=== PATIENT | male | born 1975 | race Caucasian/White ===

== ENCOUNTER 2025-05-03 04:29 | Emergency (ER) | payer OTHER, SELFPAY ==
--- OUTSIDE RECORDS SUMMARY | 2025-05-03 04:32 | XMS_ITS | Clinical Summary ---
Author Organization [facility] Address [address] [place] [id number] Care Team Providers Care Optometry Professor Name Role Phone Augusto Clarke MD Primary Care Provider [phone] Allergies No known active allergies Medications fexofenadine (NORA) 180 mg tablet Take 1 tablet by mouth once daily with a meal. 0 4 Active cyclobenzaprine (FLEXERIL) 10 mg tablet Three Times A Day as needed 1 Active ketorolac (TORADOL) 10 mg tablet Three Times A Day as needed 1 Active tiZANidine (ZANAFLEX) 4 mg tabletIndications: Right supraspinatus tendonitis,Strain of right trapezius muscle, subsequent encounter Take 1 Tablet (4 mg) by mouth every 6 hours if needed for Muscle Spasm. 30 Tablet 1 Active amLODIPine (NORVASC) 5 mg tabletIndications: Preoperative general physical examination,Rotato r cuff tear arthropathy, right,Essential hypertension TAKE ONE TABLET BY MOUTH EVERY DAY 30 Tablet 2 Active Active Problems Problem Noted Date Diagnosed Date Esophageal reflux 06/05/2007 Immunizations Immunization Administration Dates Next Due AMB Influenza, IIV3 (Age >=3 years)([facility]) 04/27/2010 HepA-HepB (Twinrix) 08/09/2008,09/25/2007 Influenza A (H1N1), Inactivated 04/21/2009 MMR 07/11/1993 Tdap 07/01/2006 Family History Medical History Relation Name Comments Good Health Father Cancer Maternal Grandfather Bone Good Health Mother Blood Disease Paternal Grandfather Leukem ia Other Paternal Grandmother of Old Age Relation Name Status Comments Father Maternal Grandfather Mother Paternal Grandfather Paternal Grandmother Social History Tobacco Use Types Packs/Day Years Used Date Smoking Tobacco: Never Smokeless Tobacco: Never Tobacco Cessation:Counseling Given: Yes Alcohol Use Standard Drinks/Week Comments Not Currently 0 (1 standard drink = 0.6 oz pur e alcohol) PHQ-2 Answer Date Recorded PHQ-2 TOTAL SCORE 0 06/22/2021 Social Connections Answer Date Recorded Frequency of Communication with Friends and Fami ly Not on file 05/23/2021 Alcohol Use Answer Date Recorded How often do you have a drink containing alcohol ? 1 06/22/2021 How many drinks containing a lcohol do you have on a typical day when you are drinking? 0 06/22/2021 How often do you have five or more drinks on one occasion? 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 Not on file Not on file Obstetrics History Last Filed Vital Signs Vital Sign Reading Time Taken Comments Blood Pressure 138/96 06/22/2021 8:49 AM [employer] ENGINEER Pulse 74 06/22/2021 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 Temperature 36.2 C (97.2 F) 06/22/2021 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 Respiratory Rate 18 04/19/2021 3:54 PM [employer] ENGINEER Oxygen Saturation 98% 06/22/2021 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 Inhaled Oxygen Concentration - - Weight 96.3 kg (212 lb 4.8 oz) 06/22/2021 8:16 A M [employer] ENGINEER Height 174 cm (5' 8.5) 06/22/2021 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 Body Mass Index 31.81 06/22/2021 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 Plan of Treatment Health Maintenance Due Date Last Done Comments HIV for age 15-65 1991 Hepatitis C screening for ag e 18-79 1994 Hepatitis B series for 19+ ( 3 of 3 - Hep B Twinrix 3-dose series) 01/09/2009 08/09/2008, 09/25/2007 Tetanus booster 07/01/2016 07/01/2006 Colonoscopy through age 75 2021 Lipids for age 45-75 2021 09/25/2007 BMI (ht and wt on same day) for age 18+ 06/22/2022 06/22/2021, 04/19/2021, 01/10/2017 Depression screening for age 12+ 06/22/2022 06/22/2021, 03/21/2020, 01/10/2017 COVID-19 vaccine series (3 - 2024- season) 2025 06/14/2021, 11/09/2020 Influenza Vaccine (#1) 2025 04/27/2010 RSV vaccine for adults or (1 - 1-dose 75+ series) 2051 Pneumococcal series for age 6-49 Aged Out No longer eligible b ased on patient's age to complete this topic Procedures Procedure Name Priority Date/Time Associated Diagnosis Comments LIPID PANEL Routine 09/25/2007 8:30 AM CDT Screening Lipid Disorders from Last 3 Months or Most Recently Relevant to Health Maintenance Results * LIPID PANEL (09/25/2007 8:30 AM CDT) CHOLESTEROL,TOTAL 151 110 - 199 mg/dL [facility] TRIGLYCERIDES 50 <150 mg/dL [facility] HDL CHOLESTEROL 49 >40 mg/dL [facility] CHOL/HDL RATIO 3.08 <4.51 [facility] LDL CHOLESTEROL 92 <131 mg/dL [facility] PATIENT STATUS Fasting [facility] Blood specimen (specimen) BLOOD SPECIMEN / Unknown 09/25/2007 8:30 AM CDT 09/25/2007 8:25 AM CDT us Augusto Clarke MD CHEMISTRY Final Resu lt [facility] [address] [place] [address] from Last 3 Months or Most Recently Relevant to Health Maintenance Insurance [employer] [facility] Care Teams Optometry Professor Relationship Specialty Start Date End Date Augusto Clarke MD [address] [place] [address] PCP - General 06/09/06
[2025-05-03 04:33] VITALS: BP 138/97; PULSE 76; RESP 18; O2SAT 95; BMI 28.5
--- NOTE | 2025-05-03 04:50 | ED.ABDPAIN ---
HPI - Abdominal Pain General Time Seen by Provider: 04:50 Date Seen: 05/03/25 Chief Complaint: Abdominal Pain Stated Complaint: severe abdominal pain Time Seen by Provider: 05/03/25 04:48 Source: patient, RN notes reviewed and old records reviewed Mode of arrival: ambulatory Limitations: no limitations History of Present Illness HPI narrative: 50-year-old male who presents today with abdominal pain. Patient with generalized abdominal pain and cramping for 24 hours, also some blood in the stool, diarrhea. No nausea vomiting, no fevers, no known ill contacts. Denies recent travel. Related Data Home Medications ?Medication ?Instructions ?Recorded ?Confirmed No Known Home Medications 05/03/25 05/03/25 Allergies Allergy/AdvReac Type Severity Reaction Status Date / Time No Known Drug Allergies Allergy Verified 05/03/25 04:39 PFSH PFSH Social History Smoking Status: Former smoker How often do you have a drink containing alcohol: 2-3 times a week AUDIT-C Alcohol total score: 3 Non-prescribed substance use: marijuana (any form) Exam Narrative: Exam Narrative: General: Well-developed and well-nourished, no acute distress Head: Atraumatic and normocephalic Eyes: Pupils are equal reactive, extraocular motions intact, conjunctiva clear ENT: External nose and ears are normal, posterior pharynx without erythema or exudate Neck: No midline cervical tenderness, full spontaneous range of motion the neck, trachea midline, no adenopathy Heart: Regular rate and rhythm no murmurs or thrills Lungs: Clear to auscultation bilaterally without wheezes or crackles Abdomen: Soft, diffuse tenderness worse in the left lower quadrant, nondistended with active bowel sounds Musculoskeletal: No tenderness, deformity, or edema Neurologic: Awake, alert, and oriented x3, no gross focal neurologic deficits, cranial nerves intact as tested Psych: Mood and affect are appropriate Skin: No rashes Const: Vital Signs, click to edit/add: Vital Signs - 24 hr 05/03/25 04:33 Pulse Rate [Right Pulse Oximeter] 76 Respiratory Rate 18 Blood Pressure [Ri ght Upper Arm] 138/97 H Pulse Oximetry 95 Oxygen Delivery Me thod Room Air Course Course ED Course: Additional records reviewed: Prior emergency department visit from March 2020 when patient was seen for COVID like symptoms Additional history from: Spouse Care impacted by: None Testing considered but not performed: See ED course Disposition: Considered admission but discharge after significant clinical improvement Patient seen examined, presents with generalized abdominal pain or some left lower quadrant along with diarrhea with some blood in the stool. Denies history of ulcerative colitis or Crohn's disease. On exam vital is stable, diffuse abdominal tenderness. Suspect colitis, diverticulitis or enteritis also possible. Labs and fluids ordered along with CT scan. Reevaluation(s) Time of Reevaluation #1: 05:44 Reevaluation #1: CT abdomen pelvis independently interpreted by me with bowel wall thickening of the ascending colon with some inflammatory stranding particularly around the cecum, no other acute intra-abdominal abnormalities. Time of Reevaluation #2: 05:55 Reevaluation #2: Labs independently interpreted by me with mild leukocytosis white blood cell count 11.9, lactate normal. Radiology interpretation CT scan agrees with my initial interpretation, also 1 cm enhancing lesion of the duodenal bulb, further outpatient evaluation commended. IMPRESSION: 1. Wall thickening and inflammation involving the cecum, ascending colon and the right half of the transverse colon consistent with colitis. No intramural air, free air or collection. A small amount of fluid is noted in the right pericolic gutter. 2. Elsewhere, diverticulosis, especially sigmoid. No evidence of diverticulitis. 3. Apparent 1 centimeter enhancing lesion in the duodenal bulb for which follow-up evaluation is recommended in the nonacute setting. 4. Other incidental and nonacute appearing findings as discussed in the body of the report. Please review the comments. Time of Reevaluation #3: 06:03 Reevaluation #3: Labs independently interpreted by me with normal basic panel, normal magnesium. Updated patient and family the findings and plan. Patient is not yet produced a stool sample or urine sample. Fluids are being given now. Anticipate discharge. Vital Signs Vital signs: Initial Vital Signs Temperature Source Temporal Artery Scan 05/03/25 04:33 Pulse Rate 76 05/03/25 04:33 Pulse Rhythm Regular 05/03/25 04:33 Respiratory Rate 18 05/03/25 04:33 Blood Pressure 138/97 H 05/03/25 04:33 Blood Pressure Mean 110 H 05/03/25 04:33 Blood Pressure Position Supine 05/03/25 04:33 Pulse Oximetry 95 05/03/25 04:33 Oxygen Delivery Method Room Air 05/03/25 04:33 Vital Signs Pulse Rate 76 05/03/25 04:33 Respiratory Rate 18 05/03/25 04:33 Blood Pressure 138/97 H 05/03/25 04:33 Pulse Oximetry 95 05/03/25 04:33 Oxygen Delivery Method Room Air 05/03/25 04:33 Pulse Rate 76 05/03/25 04:33 Respiratory Rate 18 05/03/25 04:33 Blood Pressure 138/97 H 05/03/25 04:33 Pulse Oximetry 95 05/03/25 04:33 Oxygen Delivery Method Room Air 05/03/25 04:33 Medications Administered Medications: Discontinued Medications Generic Name Dose Route Start Last Admin Trade Name Freq PRN Reason Stop Dose Admin Hydromorphone HCl 0.5 mg 05/03/25 05:04 05/03/25 05:17 Hydromorphone 0.5 Mg/0.5 Ml Inj IVP 05/03/25 05:05 0.5 mg ONCE ONE Administration Sodium Chloride 1,000 mls @ 1,000 mls/hr 05/03/25 05:15 05/03/25 05:35 0.9 % Sodium Chloride 1000 Ml IV 05/03/25 06:14 1,000 mls/hr .Q1H PATTY Administration Ondansetron HCl 4 mg 05/03/25 05:04 05/03/25 05:18 Ondansetron 2 Mg/Ml Inj IVP 05/03/25 05:05 4 mg ONCE ONE Administration MDM - Abdominal Pain Lab Data Labs: Lab Results 05/03/25 Range/Units 05:15 WBC 11.94 H (4.50-11.00) K/uL RBC 5.33 (4.30-5.90) m/uL Hgb 15.5 (13.5-17.5) gm/dL Hct 46.3 (37.0-53.0) % MCV 87 (80-100) fL MCH 29 (26-34) pg MCHC 34 (32-36) gm/dL RDW Coeff of Roland 13.0 (11.5-15.5) % Plt Count 259 (140-440) K/uL Neut % (Auto) 75.8 H (42.0-72.0) % Lymph % (Auto) 15.6 L (20-44) % [place] % (Auto) 6.4 (0.0-11.0) % Eos % (Auto) 1.1 (0.0-7.0) % Baso % (Auto) 0.3 (0.0-3.0) % Neut # (Auto) 9.10 H (1.7-7.0) K/uL Lymph # (Auto) 1.90 (0.90-2.90) K/uL [place] # (Auto) 0.80 (0.00-0.90) K/UL Eos # (Auto) 0.10 (0.00-0.50) K/uL Baso # (Auto) 0.00 (0.00-0.30) K/uL Abs Immat Gran (auto) 0.10 (0.00-0.30) K/uL Imm/Tot Granulo (auto) 0.8 % Sodium 135 (135-149) mmol/L Potassium 3.9 (3.6-5.1) mmol/L Chloride 100 (96-114) mmol/L Carbon Dioxide 23 (20-32) mmol/L Anion Gap 12 (7-15) mEq/L BUN 10 (5-24) mg/dL Creatinine 0.9 (0.5-1.5) mg/dL Estimated Creat Clear 96.06 Estimated GFR 105 ml/min Glucose 113 (60-115) mg/dL Lactate 1.1 (0.5-1.9) mmol/L Calcium 9.1 (8.4-10.6) mg/dL Magnesium 2.0 (1.5-2.6) mg/dL Discharge Plan Discharge Clinical Impression: Colitis, Duodenal mass Patient Disposition: Home, Self-Care Instructions: Colitis (ED) Additional Instructions: There is a 1 cm mass in the 1st part of the small intestine which will need follow-up. This can be done with MRI or endoscopy. Take Imodium as needed. Make sure your getting plenty of fluids. Avoid red fluids including Gatorade as this can cause red discoloration in the stool. Start bland diet and advance as tolerated. Activity Level: Activity as Tolerated Discharge Diet: Regular Prescriptions: No Action No Known Home Medications Stand Alone Forms: [employer] Info Instructions, Work/School Release
[2025-05-03 05:00] VITALS: TEMP 36.5
--- NOTE | 2025-05-03 05:04 | CRLHL7_ITS ---
For Patients: As a result of the Century Cures Act, medical imaging exams and procedure reports are released immediately into your electronic medical record. You may view this report before your referring provider. If you have questions, please contact your health care provider. INDICATION: Generalized abdominal pain, worse in the left lower quadrant. Hematochezia. COMPARISON: December 08, 2015 TECHNIQUE: CT examination of the abdomen and pelvis was performed following the uneventful intravenous administration of 93 cc of Isovue 370. Thin section axial images were obtained from the lung bases through the pubic symphysis. Oral contrast was not administered. Please note that all CT scans at this facility use dose modulation, iterative reconstruction, and/or weight-based dosing when appropriate to reduce radiation dose to as low as reasonably achievable. FINDINGS: LUNG BASES: The lung bases as visualized appear normal.The heart size is normal at the lung bases. Small hiatal hernia LIVER/BILIARY SYSTEM:The liver is normal in size and configuration. There is no focal mass and there is no intra- or extra hepatic biliary ductal dilatation.The gall bladder appears normal. Hepatic steatosis ADRENALS: Normal KIDNEYS, URETERS and BLADDER:No intrarenal calculi. Low-density benign-appearing renal lesions. No hydronephrosis or hydroureter. The bladder appears normal SPLEEN:Normal appearance. PANCREAS: Appears normal. RETROPERITONEUM and MESENTERY: There is no mass, adenopathy or aortic aneurysm. GASTROINTESTINAL SYSTEM: There is wall thickening and inflammation the cecum, ascending colon and the right half of the transverse colon. This is consistent with colitis. No intramural air, free air or collection. A small amount of free fluid is noted in the right pericolic gutter. Elsewhere in the colon, there is diverticulosis, especially sigmoid but no evidence of diverticulitis. No mechanical obstruction. No gastric abnormality observed. There is a possible 1 centimeter enhancing lesion in the duodenal bulb for which follow-up is recommended PELVIS: No mass, adenopathy or free fluid.Mildly prominent prostate OSSEOUS STRUCTURES and ABDOMINAL WALL: There is an age-appropriate appearance of the osseous structures.No significant abdominal wall defect. OTHER: No free fluid or free air. IMPRESSION: 1. Wall thickening and inflammation involving the cecum, ascending colon and the right half of the transverse colon consistent with colitis. No intramural air, free air or collection. A small amount of fluid is noted in the right pericolic gutter. 2. Elsewhere, diverticulosis, especially sigmoid. No evidence of diverticulitis. 3. Apparent 1 centimeter enhancing lesion in the duodenal bulb for which follow-up evaluation is recommended in the nonacute setting. 4. Other incidental and nonacute appearing findings as discussed in the body of the report. Please review the comments. Please note that all CT scans at this facility use dose modulation, iterative reconstruction, and/or weight-based dosing when appropriate to reduce radiation dose to as low as reasonably achievable. Dictated by Wilberto Farnsworth MD @ 05/03/2025 5:44:14 AM (Electronically Signed)
[2025-05-03] MEDS: ONDANSETRON 2 MG/ML inj 4 MG IVP (05:18)
[2025-05-03 05:29] LABS: Hematocrit* 46.3 % (37.0-53.0); Hemoglobin* 15.5 gm/dL (13.5-17.5); Immature Granulocytes Abs Auto 0.10 K/uL (0.00-0.30); Immature Granulocytes Pct Auto 0.8 %; Mean Corpuscular HGB Conc 34 gm/dL (32-36); Mean Corpuscular Hemoglobin 29 pg (26-34); Mean Corpuscular Volume 87 fL (80-100); RDW Coefficient of Variation % 13.0 % (11.5-15.5); Red Blood Count* 5.33 m/uL (4.30-5.90); White Blood Count* 11.94 K/uL (4.50-11.00)
[2025-05-03 05:32] LABS: Lactate* 1.1 mmol/L (0.5-1.9)
[2025-05-03 05:50] LABS: Lymphocytes Absolute Auto 1.90 K/uL (0.90-2.90)
[2025-05-03 05:51] LABS: Slide Review Reflex No
[2025-05-03 05:53] LABS: Chloride* 100 mmol/L (96-114); Sodium* 135 mmol/L (135-149)
[2025-05-03 05:54] LABS: Potassium* 3.9 mmol/L (3.6-5.1)
[2025-05-03 05:56] LABS: Anion Gap 12 mEq/L (7-15); Blood Urea Nitrogen* 10 mg/dL (5-24); Carbon Dioxide* 23 mmol/L (20-32); Creatinine* 0.9 mg/dL (0.5-1.5); Est. Creatinine Clearance* 96.06; Estimated Glomerular Filt Rate 105 ml/min
[2025-05-03 05:57] LABS: Calcium* 9.1 mg/dL (8.4-10.6); Glucose* 113 mg/dL (60-115)
[2025-05-03 06:52] LABS: Appearance Urine Clear (Clear)
[2025-05-04 13:23] LABS: Erythrocyte SedimentationRate* 3 mm/hr (2-15)
== END 2025-05-03 06:57 | disposition home or self-care (01) ==
LOC: ED 05:52
PROVIDERS: Emergency Provider Family Medicine
DX: K52.9 Noninfective gastroenteritis and colitis, unspecified (principal); K31.9 Disease of stomach and duodenum, unspecified
CPT/HCPCS: 36415; 74177; 80048; 81001; 83605; 83735; 85025; 85651; 86140; 87045; 87046; 87427; 96374; 96375; 99285; J1171; J2405; J7030; Q9967

== ENCOUNTER 2025-05-04 06:28 | Inpatient (IN) | payer OTHER, SELFPAY ==
[2025-05-04] VITALS (24 sets, daily range): BP systolic 100–139; BP diastolic 66–86; PULSE 51–73; RESP 16–18; TEMP 36.3–36.9; O2SAT 87–100; BMI 29.0; BMI 29.1
--- NOTE | 2025-05-04 06:45 | ED.ABDPAIN ---
HPI - Abdominal Pain General Time Seen by Provider: 06:45 Date Seen: 05/04/25 Chief Complaint: Abdominal Pain Stated Complaint: Abdominal pain Time Seen by Provider: 05/04/25 06:45 Source: patient Mode of arrival: ambulatory History of Present Illness HPI narrative: Wilberto is a 50 yo male has known significant past medical history who presents the emergency department for evaluation of abdominal pain. Patient presents this morning with his who provides majority of the history. reports that symptoms started on Friday night around 2200 with diffuse abdominal cramping, and diarrhea. On Friday patient had worsening cramping pain along with blood in the stool so went to the emergency department for evaluation. Per chart review patient was seen in the emergency department 2 days ago on Friday05/02/2025 for abdominal pain/cramping, and bloody stools. Patient had comprehensive labs as well as CT imaging which I reviewed and patient was diagnosed with colitis and was discharged home with Imodium, oxycodone, Zofran. Right reports that since discharge medications do not seem to be working. Patient had his last episode of loose stool yesterday morning around 10:00 a.m. and patient did bring sample in for testing. notes that yesterday patient had decreased oral intake and only took an approximately 6 oz of fluids. This morning patient woke up around 5:00 a.m. with severe worsening abdominal pain along with nausea, vomiting. Denies any fever however does report chills. No sick contacts, no recent illnesses, no recent travel. No other complaints. Hx of ingunial hernia repair, no other abdominal surgeries. Related Data Home Medications ?Medication ?Instructions ?Recorded ?Confirmed No Known Home Medications 05/03/25 05/04/25 Allergies Allergy/AdvReac Type Severity Reaction Status Date / Time No Known Drug Allergies Allergy Verified 05/04/25 06:40 Review of Systems Narrative Past medical history, past surgical history, medications, allergies, family history, and social history were reviewed with the patient. No additional pertinent items. A medically appropriate review of systems was performed with pertinent positives and negatives noted in HPI, all other systems negative. PFSH PFS Social History Smoking Status: Former smoker How often do you have a drink containing alcohol: 2-3 times a week AUDIT-C Alcohol total score: 3 Non-prescribed substance use: marijuana (any form) Exam Narrative: Exam Narrative: General: Afebrile, in distress secondary to pain HEENT: Normocephalic, atraumatic, conjunctiva normal. MMM Neck: non-tender, supple Cardio: regular rate. regular rhythm Resp: Normal work of breathing, no respiratory distress, lungs clear bilaterally, no wheezing, rhonchi, rales Chest/Back: no visual signs of trauma, no midline tenderness, no CVA tenderness Abdomen: soft, diffuse tenderness to palpation mostly and lower abdomen. Neuro: alert and fully oriented. CN II-XII grossly intact. Grossly normal strength and sensation in all extremities. MSK: no deformities. Normal range of motion Integumentary/Skin: no rash visualized, normal color Psych: normal affect, normal behavior Const: Vital Signs, click to edit/add: Vital Signs - 24 hr 05/04/25 06:38 Temperature 98.4 F Pulse Rate [Pulse Oximeter] 73 Respiratory Rate 18 Blood Pressure [Ri ght Upper Arm] 127/84 Pulse Oximetry 98 Oxygen Delivery Me thod Room Air Course Vital Signs Vital signs: Initial Vital Signs Temperature 98.4 F 05/04/25 06:38 Temperature Source Temporal Artery Scan 05/04/25 06:38 Pulse Rate 73 05/04/25 06:38 Respiratory Rate 18 05/04/25 06:38 Blood Pressure 127/84 05/04/25 06:38 Blood Pressure Mean 98 05/04/25 06:38 Blood Pressure Position Sitting 05/04/25 06:38 Pulse Oximetry 98 05/04/25 06:38 Oxygen Delivery Method Room Air 05/04/25 06:38 Vital Signs Temperature 98.4 F 05/04/25 06:38 Pulse Rate 73 05/04/25 06:38 Respiratory Rate 18 05/04/25 06:38 Blood Pressure 127/84 05/04/25 06:38 Pulse Oximetry 98 05/04/25 06:38 Oxygen Delivery Method Room Air 05/04/25 06:38 Temperature 98.4 F 05/04/25 06:38 Pulse Rate 73 05/04/25 06:38 Respiratory Rate 18 05/04/25 06:38 Blood Pressure 127/84 05/04/25 06:38 Pulse Oximetry 98 05/04/25 06:38 Oxygen Delivery Method Room Air 05/04/25 06:38 Medications Administered Medications: Generic Name Dose Route Start Last Admin Trade Name Freq PRN Reason Stop Dose Admin Sodium Chloride 1,000 mls @ 1,000 mls/hr 05/04/25 07:00 05/04/25 07:09 0.9 % Sodium Chloride 1000 Ml IV 05/04/25 07:59 1,000 mls/hr .Q1H PATTY Administration Discontinued Medications Generic Name Dose Route Start Last Admin Trade Name [place] PRN Reason Stop Dose Admin Hydromorphone HCl 0.5 mg 05/04/25 06:59 05/04/25 07:08 Hydromorphone 0.5 Mg/0.5 Ml Inj IVP 05/04/25 07:00 0.5 mg ONCE ONE Administration Ondansetron HCl 4 mg 05/04/25 06:59 05/04/25 07:08 Ondansetron 2 Mg/Ml Inj IVP 05/04/25 07:00 4 mg ONCE ONE Administration MDM - Abdominal Pain MDM Narrative Medical decision making narrative: Wilberto is a 50 yo male has known significant past medical history who presents the emergency department for evaluation of abdominal pain. Upon arrival patient is ill but nontoxic appearing, afebrile, in distress. Patient hemodynamically stable vital signs within normal limits blood pressure 127/84, heart rate 73, oxygen 98% on room air. I reviewed patient's most recent ED visit on 05/02/2025 including comprehensive labs as well as CT imaging. Differential diagnosis includes but is not limited to gastroenteritis versus gastritis versus colitis versus perforated bowel versus pancreatitis versus diverticulitis versus appendicitis versus cholecystitis among others. Given patient's worsening symptoms will plan for repeat laboratory testing and likely repeat CT scan given significant tenderness on examination. Patient was treated with IV Zofran, IV Dilaudid for pain, and 1 L IV fluid bolus. Comprehensive labs remarkable for white blood cell count of 10.4 (previously 11.9), hemoglobin 15.1, normal lactic acid 1.3. No acute metabolic or electrolyte abnormality, bilirubin elevated at 2.4 however unknown baseline. No other transaminitis. Normal lipase. Patient signed out to morning provider pending CT scan of the abdomen pelvis, re-evaluation, final disposition. Medical Records Attestation: I reviewed the patient's medical records. Lab Data Attestation: I reviewed the patient's lab results. Labs: Lab Results 05/04/25 Range/Units 06:48 WBC 10.40 (4.50-11.00) K/uL RBC 5.16 (4.30-5.90) m/uL Hgb 15.1 (13.5-17.5) gm/dL Hct 45.4 (37.0-53.0) % MCV 88 (80-100) fL MCH 29 (26-34) pg MCHC 33 (32-36) gm/dL RDW Coeff of Roland 12.9 (11.5-15.5) % Plt Count 258 (140-440) K/uL Neut % (Auto) 70.5 (42.0-72.0) % Lymph % (Auto) 21.3 (20-44) % [place] % (Auto) 5.9 (0.0-11.0) % Eos % (Auto) 1.9 (0.0-7.0) % Baso % (Auto) 0.2 (0.0-3.0) % Neut # (Auto) 7.34 H (1.7-7.0) K/uL Lymph # (Auto) 2.21 (0.90-2.90) K/uL [place] # (Auto) 0.60 (0.00-0.90) K/UL Eos # (Auto) 0.20 (0.00-0.50) K/uL Baso # (Auto) 0.02 (0.00-0.30) K/uL Abs Immat Gran (auto) 0.02 (0.00-0.30) K/uL Imm/Tot Granulo (auto) 0.2 % Sodium 137 (135-149) mmol/L Potassium 3.9 (3.6-5.1) mmol/L Chloride 99 (96-114) mmol/L Carbon Dioxide 26 (20-32) mmol/L Anion Gap 12 (7-15) mEq/L BUN 12 (5-24) mg/dL Creatinine 1.1 (0.5-1.5) mg/dL Estimated GFR 82 ml/min Glucose 104 (60-115) mg/dL Lactate 1.3 (0.5-1.9) mmol/L Calcium 9.0 (8.4-10.6) mg/dL Total Bilirubin 2.4 H (0.1-1.5) mg/dL AST 24 (12-35) U/L ALT 24 (4-50) U/L Alkaline Phosphatase 61 (40-150) U/L Total Protein 7.2 (6.0-8.3) g/dL Albumin 4.2 (3.3-5.0) g/dL Lipase 33 (23-300) U/L Discharge Plan Discharge Clinical Impression: Diffuse abdominal pain, Nausea & vomiting Prescriptions: No Action No Known Home Medications Follow Up/Referrals: Provider,Not a Local [Primary Care Provider, Family Practice]
[2025-05-04 07:07] LABS: Lactate* 1.3 mmol/L (0.5-1.9)
[2025-05-04] MEDS: ONDANSETRON 2 MG/ML inj 4 MG IVP ×3 (07:08→19:54)
[2025-05-04 07:21] LABS: Hematocrit* 45.4 % (37.0-53.0); Hemoglobin* 15.1 gm/dL (13.5-17.5); Immature Granulocytes Abs Auto 0.02 K/uL (0.00-0.30); Immature Granulocytes Pct Auto 0.2 %; Lymphocytes Absolute Auto 2.21 K/uL (0.90-2.90); Mean Corpuscular HGB Conc 33 gm/dL (32-36); Mean Corpuscular Hemoglobin 29 pg (26-34); Mean Corpuscular Volume 88 fL (80-100); RDW Coefficient of Variation % 12.9 % (11.5-15.5); Red Blood Count* 5.16 m/uL (4.30-5.90); White Blood Count* 10.40 K/uL (4.50-11.00)
[2025-05-04 07:23] LABS: Slide Review Reflex No
[2025-05-04 07:24] LABS: Albumin* 4.2 g/dL (3.3-5.0); Chloride* 99 mmol/L (96-114)
[2025-05-04 07:25] LABS: Potassium* 3.9 mmol/L (3.6-5.1); Sodium* 137 mmol/L (135-149)
[2025-05-04 07:27] LABS: Alanine Aminotransferase* 24 U/L (4-50); Alkaline Phosphatase* 61 U/L (40-150); Anion Gap 12 mEq/L (7-15); Aspartate Amino Transferase* 24 U/L (12-35); Bilirubin Total* 2.4 mg/dL (0.1-1.5); Blood Urea Nitrogen* 12 mg/dL (5-24); Carbon Dioxide* 26 mmol/L (20-32); Creatinine* 1.1 mg/dL (0.5-1.5); Estimated Glomerular Filt Rate 82 ml/min; Total Protein* 7.2 g/dL (6.0-8.3)
[2025-05-04 07:28] LABS: Calcium* 9.0 mg/dL (8.4-10.6); Glucose* 104 mg/dL (60-115)
--- NOTE | 2025-05-04 07:34 | CRLHL7_ITS ---
For Patients: As a result of the Century Cures Act, medical imaging exams and procedure reports are released immediately into your electronic medical record. You may view this report before your referring provider. If you have questions, please contact your health care provider. INDICATION: Abdominal pain, vomiting, colitis TECHNIQUE: CT abdomen and pelvis acquired with 95 cc Isovue 370 IV contrast. COMPARISON: CT abdomen and pelvis May 03, 2025 FINDINGS: Lower chest: Unremarkable. Liver: Normal in size and attenuation. No suspicious masses. Gallbladder and bile ducts: No stones or inflammation. No biliary dilatation. Pancreas: No mass or inflammation. Spleen: Normal in size. No masses. Adrenal glands: No suspicious mass. Kidneys: Bilateral kidneys are normal in size with symmetric enhancement. No nephrolithiasis or hydronephrosis. Too small to characterize hypodense renal lesions, unchanged. GI tract: Redemonstration of wall thickening and inflammation involving ascending colon and transverse colon, similar to previous exam. No interval change. No bowel obstruction. No localized or drainable fluid collection. Colonic diverticulosis without diverticulitis. Previously noted enhancing lesion in the duodenal bulb is less conspicuous on the current exam. Normal appendix. Vasculature: Abdominal aorta is normal in caliber. Lymph nodes: Redemonstration of few subcentimeter sized lymph node in the right mid quadrant, likely reactive. Peritoneum/Abdominal Wall: No free air or significant free fluid. Hernia. Small fat containing umbilical Pelvis: Unremarkable. Bones: Unremarkable for age. IMPRESSION: Redemonstration of findings suggestive of colitis involving ascending and transverse colon, without significant interval change. Colonic diverticulosis. Previously noted enhancing lesion in the duodenal bulb is less conspicuous on the current exam. Please note that all CT scans at this facility use dose modulation, iterative reconstruction, and/or weight-based dosing when appropriate to reduce radiation dose to as low as reasonably achievable. Dictated by Arnaud Valdes MD @ 05/04/2025 8:54:48 AM (Electronically Signed)
[2025-05-04] MEDS: MORPHINE 4 MG/ML INJ IVP (08:05)
[2025-05-04] MEDS: PIPERACILLIN/TAZOBACTAM 4.5 GM in 0.9 % SODIUM CHLORIDE Mini-bag 100 ML IVPB (09:35)
--- NOTE | 2025-05-04 11:01 | PM.IMHP1 ---
Assessment and Plan Assessment and plan (1) Colitis: Problem comment: - on imaging 05/03 and 05/04 - ddx: infectious, inflammatory - not typically treated with abx, but given severe symptoms/discomfort/hematochezia, will cover with Zosyn - IVFs, clear diet if tolerated (currently not able to take anything po), slowly advance - check C-diff - will need outpatient colonoscopy in 4-6 weeks to evaluate Status: Acute (2) Hematochezia: Problem comment: - 07/04 colitis, follow Hgb Status: Acute (3) Duodenal mass: Problem comment: - incidentally noted 05/03/25, outpatient f/u Status: Acute (4) Nausea & vomiting: Problem comment: - treat, slowly advance diet Status: Acute Plan - per above - acutely ill with recurrent ER visits, likely will require 2MN stay given symptoms, need for serial Hgb, IV management of symptoms - updated bedside, questions answered Hospitalist- H&P: HPI History of Present Illness Date Seen: 05/04/25 Chief complaint: Abdominal pain Narrative: Wilberto Gipson is a 50 year old male who presented to the emergency room this morning for persistent abdominal pain. He has had symptoms for 4 days, started on Friday, 05/01 with abdominal cramping, nausea, and diarrhea. Intermittent associated hematochezia. Seen in the emergency room on 05/03 for symptoms, noted to have colitis on CT scan with incidentally noted 1cm enhancing lesion in duodenal bulb, reassuring labs. Discharged home with oral pain management, but symptoms worsened significantly over the last 24 hours; now has more nausea and vomiting and unable to tolerate oral medication. ER today: - white blood count of 10.4 with normal differential - reassuring BMP, bilirubin 2.4 - repeat CT: Redemonstration of colitis in the ascending and transverse colon, less conspicuous enhancing lesion duodenal bulb No sick contacts, no recent travel, no joint pain, no fevers. No sick animals. No self or family history of IBD. Generally healthy, no regular medications. Has seen Dr. Clarke in the past for primary care. 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 Nonsmoker, rare ETOH. Full Code What is your current living situation?: I presently have a place to live Problems where you live: no known problems In the past 12 months, utilities in danger of being shut off: no In past 12 months, lack of transportation kept you from medical appts, meetings, work, or getting things needed for daily living: no In the past 12 mos, have been you worried that your food would run out before you had money to buy more?: never true In the past 12 mos, the food you bought just didn't last and you didn't have money to buy more?: never true Highest level of school completed/degree received: Bachelor's degree Smoking Status: Never smoker How often do you have a drink containing alcohol: 2-4 times a month Alcohol type: beer How many standard drinks containing alcohol do you have on a typical day: 3 or 4 How often do you have six or more drinks on one occasion: Never AUDIT-C Alcohol total score: 3 Non-prescribed substance use: denies use Caffeine: Yes (soda) How often does anyone, including family, friends and others, physically hurt you: never How often does anyone, including family, friends and others, insult or talk down to you: never How often does anyone, including family, friends and others, threaten you with harm: never How often does anyone, including family, friends and others, scream or curse at you: never service: No Meds Home Medications and Allergies Home Medications ?Medication ?Instructions ?Recorded ?Confirmed ?Type No Known Home Medications 05/03/25 05/04/25 History Home Medication Comments: No daily medications Allergies Allergy/AdvReac Type Severity Reaction Status Date / Time No Known Drug Allergies Allergy Verified 05/04/25 06:40 Exam Narrative: Exam Narrative: GEN: Alert and oriented, sitting in bed. Appears ill with intermittent retching during our visit HEENT: EOMIs bilaterally, no scleral icterus CV: RRR, No concerning murmurs R: LCTA bilaterally Ab: Uncomfortable with palpation, mild distention Ext: wwp, no concerning edema Neuro: Nonfocal Psych: Appropriate Const: Vital Signs, click to edit/add: Vital Signs - 24 hr 05/04/25 06:38 05/04/25 07:24 05/04/25 07:25 Temperature 98.4 F Pulse Rate 57 L 54 L Pulse Rate [Pulse Oximeter] 73 Pulse Rate [Right Pulse Oximeter] Respiratory Rate 18 Blood Pressure 100/69 Blood Pressure [Le ft Arm] Blood Pressure [Ri ght Upper Arm] 127/84 Pulse Oximetry 98 93 94 Oxygen Delivery Me thod Room Air Oxygen Flow Rate 05/04/25 07:30 05/04/25 07:31 05/04/25 07:45 Temperature Pulse Rate 56 L 55 L 56 L Pulse Rate [Pulse Oximeter] Pulse Rate [Right Pulse Oximeter] Respiratory Rate Blood Pressure 110/66 Blood Pressure [Le ft Arm] Blood Pressure [Ri ght Upper Arm] Pulse Oximetry 92 94 98 Oxygen Delivery Me thod Oxygen Flow Rate 05/04/25 08:00 05/04/25 08:01 05/04/25 08:02 Temperature Pulse Rate 56 L 56 L 60 Pulse Rate [Pulse Oximeter] Pulse Rate [Right Pulse Oximeter] Respiratory Rate Blood Pressure 109/69 Blood Pressure [Le ft Arm] Blood Pressure [Ri ght Upper Arm] Pulse Oximetry 96 94 90 Oxygen Delivery Me thod Oxygen Flow Rate 05/04/25 08:15 05/04/25 08:34 05/04/25 08:38 Temperature Pulse Rate 67 60 Pulse Rate [Pulse Oximeter] Pulse Rate [Right Pulse Oximeter] Respiratory Rate Blood Pressure Blood Pressure [Le ft Arm] Blood Pressure [Ri ght Upper Arm] Pulse Oximetry 87 L 99 98 Oxygen Delivery Me thod Room Air Nasal Cannula Nasal Cannula Oxygen Flow Rate 2 2 05/04/25 08:38 05/04/25 08:45 05/04/25 09:00 Temperature Pulse Rate 51 L 51 L 59 L Pulse Rate [Pulse Oximeter] Pulse Rate [Right Pulse Oximeter] Respiratory Rate Blood Pressure 118/79 Blood Pressure [Le ft Arm] Blood Pressure [Ri ght Upper Arm] Pulse Oximetry 100 98 98 Oxygen Delivery Me thod Oxygen Flow Rate 05/04/25 09:01 05/04/25 09:15 05/04/25 09:30 Temperature Pulse Rate 56 L 63 60 Pulse Rate [Pulse Oximeter] Pulse Rate [Right Pulse Oximeter] Respiratory Rate 16 Blood Pressure 120/81 Blood Pressure [Le ft Arm] Blood Pressure [Ri ght Upper Arm] Pulse Oximetry 98 97 97 Oxygen Delivery Me thod Oxygen Flow Rate 05/04/25 09:31 05/04/25 09:45 05/04/25 10:21 Temperature 97.4 F L Pulse Rate 72 56 L Pulse Rate [Pulse Oximeter] Pulse Rate [Right Pulse Oximeter] 55 L Respiratory Rate 16 18 Blood Pressure 122/76 Blood Pressure [Le ft Arm] 124/72 Blood Pressure [Ri ght Upper Arm] Pulse Oximetry 97 97 97 Oxygen Delivery Me thod Room Air Oxygen Flow Rate Hospitalist - H&P: Result Labs Labs: Short CBC 05/04/25 Range/Units 06:48 WBC 10.40 (4.50-11.00) K/uL Hgb 15.1 (13.5-17.5) gm/dL Hct 45.4 (37.0-53.0) % Plt Count 258 (140-440) K/uL BMP 05/04/25 06:48 Sodium 137 Potassium 3.9 Chloride 99 Carbon Dioxide 26 BUN 12 Creatinine 1.1 Glucose 104 Calcium 9.0 Liver Function 05/04/25 Range/Units 06:48 Total Bilirubin 2.4 H (0.1-1.5) mg/dL AST 24 (12-35) U/L ALT 24 (4-50) U/L Alkaline Phosphatase 61 (40-150) U/L Albumin 4.2 (3.3-5.0) g/dL
[2025-05-04] MEDS: PANTOPRAZOLE SODIUM 40 MG INJ IVP (11:39)
[2025-05-04] MEDS: PIPERACILLIN/TAZOBACTAM 3.375 GM in 0.9 % SODIUM CHLORIDE Mini-bag 100 ML IVPB ×2 (15:11→21:46)
[2025-05-04 15:38] LABS: Hemoglobin* 13.8 gm/dL (13.5-17.5)
--- NOTE | 2025-05-04 18:07 | PC.NURSE ---
End of Shift note 261 Patient has been pleasant and cooperative throughout shift. VSS. Afebrile. A&Ox4. Independent. Uses call light appropriately. Call light within reach
[2025-05-04] MEDS: ACETAMINOPHEN 325 MG TABLET 975 MG PO (19:54)
[2025-05-04] MEDS: PROCHLORPERAZINE 5 MG/ML VIAL IV (23:34)
[2025-05-05] MEDS: ACETAMINOPHEN 325 MG TABLET 975 MG PO ×2 (02:00→08:06)
[2025-05-05] MEDS: ONDANSETRON 2 MG/ML inj 4 MG IVP (02:00)
[2025-05-05 03:00] VITALS: BP 113/66; PULSE 56; RESP 16; TEMP 36.7; O2SAT 98
[2025-05-05] MEDS: PIPERACILLIN/TAZOBACTAM 3.375 GM in 0.9 % SODIUM CHLORIDE Mini-bag 100 ML IVPB ×3 (03:49→15:28)
[2025-05-05 06:40] LABS: Hematocrit* 38.8 % (37.0-53.0); Hemoglobin* 12.6 gm/dL (13.5-17.5); Immature Granulocytes Abs Auto 0.01 K/uL (0.00-0.30); Immature Granulocytes Pct Auto 0.1 %; Lymphocytes Absolute Auto 1.86 K/uL (0.90-2.90); Mean Corpuscular HGB Conc 33 gm/dL (32-36); Mean Corpuscular Hemoglobin 29 pg (26-34); Mean Corpuscular Volume 90 fL (80-100); RDW Coefficient of Variation % 13.0 % (11.5-15.5); Red Blood Count* 4.32 m/uL (4.30-5.90); White Blood Count* 7.71 K/uL (4.50-11.00)
[2025-05-05 06:44] LABS: Slide Review Reflex No
[2025-05-05 06:47] LABS: Albumin* 3.4 g/dL (3.3-5.0); Chloride* 102 mmol/L (96-114)
[2025-05-05 06:48] LABS: Potassium* 3.8 mmol/L (3.6-5.1); Sodium* 134 mmol/L (135-149)
[2025-05-05 06:50] LABS: Alanine Aminotransferase* 18 U/L (4-50); Alkaline Phosphatase* 53 U/L (40-150); Anion Gap 10 mEq/L (7-15); Aspartate Amino Transferase* 18 U/L (12-35); Bilirubin Direct* 0.4 mg/dL (0.0-0.5); Bilirubin Total* 2.7 mg/dL (0.1-1.5); Blood Urea Nitrogen* 15 mg/dL (5-24); Carbon Dioxide* 22 mmol/L (20-32); Creatinine* 1.0 mg/dL (0.5-1.5); Est. Creatinine Clearance* 86.45; Estimated Glomerular Filt Rate 92 ml/min; Total Protein* 5.9 g/dL (6.0-8.3)
[2025-05-05 06:51] LABS: Calcium* 7.8 mg/dL (8.4-10.6); Glucose* 81 mg/dL (60-115)
[2025-05-05 07:00] VITALS: BP 130/77; PULSE 65; RESP 22; TEMP 36.5; O2SAT 97
[2025-05-05 07:39] LABS: Erythrocyte SedimentationRate* 12 mm/hr (2-15)
[2025-05-05] MEDS: SODIUM CHLORIDE 0.9 % (FLUSH) 10 ML SYRINGE 5 ML IVF (08:08)
--- NOTE | 2025-05-05 10:06 | P.IMPN_ITS ---
Assessment and Plan Assessment and plan (1) Colitis: Problem comment: - on imaging 05/03 and 05/04 - ddx: infectious, inflammatory - not typically treated with abx, but given severe symptoms/discomfort/hematochezia, will cover with Zosyn - IVFs, clear diet if tolerated (currently not able to take anything po), slowly advance - check C-diff - will need outpatient colonoscopy in 4-6 weeks to evaluate Status: Acute (2) Hematochezia: Problem comment: - 07/04 colitis, follow Hgb Status: Acute (3) Duodenal mass: Problem comment: - incidentally noted 05/03/25, outpatient f/u Status: Acute (4) Nausea & vomiting: Problem comment: - treat, slowly advance diet Status: Acute Subjective Date Seen: 05/05/25 Interval history: Wilberto was admitted to the hospital on 05/04 for intractable abdominal pain in the setting of nausea, vomiting, and diarrhea with hematochezia. Diagnosed with colitis of ascending and transverse colon on imaging performed Exam Const: Vital Signs, click to edit/add: Vital Signs - 24 hr 05/04/25 10:21 05/04/25 11:00 05/04/25 15:00 Temperature 97.4 F L Pulse Rate [Right Pulse Oximeter] 55 L 62 55 L Respiratory Rate 18 16 18 Blood Pressure [Le ft Arm] 124/72 139/86 120/73 Pulse Oximetry 97 95 96 Oxygen Delivery Me thod Room Air Room Air Nasal Cannula Oxygen Flow Rate 2 05/04/25 19:00 05/04/25 23:00 05/04/25 23:00 Temperature 97.9 F Pulse Rate [Right Pulse Oximeter] 56 L 51 L Respiratory Rate 18 16 Blood Pressure [Le ft Arm] 131/77 116/68 Pulse Oximetry 97 95 95 Oxygen Delivery Me thod Room Air Nasal Cannula Nasal Cannula Oxygen Flow Rate 1 1 05/05/25 03:00 05/05/25 07:00 05/05/25 07:00 Temperature 98.0 F 97.7 F Pulse Rate [Right Pulse Oximeter] 56 L 65 Respiratory Rate 16 22 Blood Pressure [Le ft Arm] 113/66 130/77 Pulse Oximetry 98 97 97 Oxygen Delivery Me thod Nasal Cannula Room Air Room Air Oxygen Flow Rate 1 Labs Labs: Laboratory Results - last 24 hr 05/04/25 05/04/25 05/04/25 06:48 12:11 15:25 WBC RBC Hgb 13.8 Hct MCV MCH MCHC RDW Coeff of Roland Plt Count Neut % (Auto) Lymph % (Auto) [place] % (Auto) Eos % (Auto) Baso % (Auto) Neut # (Auto) Lymph # (Auto) [place] # (Auto) Eos # (Auto) Baso # (Auto) Abs Immat Gran (auto) Imm/Tot Granulo (auto) ESR Cancelled Sodium 137 Potassium 3.9 Chloride 99 Carbon Dioxide 26 Anion Gap 12 BUN 12 Creatinine 1.1 Estimated Creat Clear Estimated GFR 82 Glucose 104 Calcium 9.0 Total Bilirubin 2.4 H Direct Bilirubin AST 24 ALT 24 Alkaline Phosphatase 61 C-Reactive Protein 3.9 H Total Protein 7.2 Albumin 4.2 Lipase 33 Lab Acknowledgement Test Added 05/05/25 06:10 WBC 7.71 RBC 4.32 Hgb 12.6 L Hct 38.8 MCV 90 MCH 29 MCHC 33 RDW Coeff of Roland 13.0 Plt Count 199 Neut % (Auto) 67.8 Lymph % (Auto) 24.1 [place] % (Auto) 5.7 Eos % (Auto) 1.9 Baso % (Auto) 0.4 Neut # (Auto) 5.22 Lymph # (Auto) 1.86 [place] # (Auto) 0.40 Eos # (Auto) 0.15 Baso # (Auto) 0.03 Abs Immat Gran (auto) 0.01 Imm/Tot Granulo (auto) 0.1 ESR 12 Sodium 134 L Potassium 3.8 Chloride 102 Carbon Dioxide 22 Anion Gap 10 BUN 15 Creatinine 1.0 Estimated Creat Clear 86.45 Estimated GFR 92 Glucose 81 Calcium 7.8 L Total Bilirubin 2.7 H Direct Bilirubin 0.4 AST 18 ALT 18 Alkaline Phosphatase 53 C-Reactive Protein 3.9 H Total Protein 5.9 L Albumin 3.4 Lipase Lab Acknowledgement
[2025-05-05 11:00] VITALS: BP 102/60; PULSE 54; RESP 18; TEMP 36.7; O2SAT 95
--- NOTE | 2025-05-05 11:35 | CRLHL7_ITS ---
For Patients: As a result of the Century Cures Act, medical imaging exams and procedure reports are released immediately into your electronic medical record. You may view this report before your referring provider. If you have questions, please contact your health care provider. INDICATION: Colitis. TECHNIQUE: CT abdomen and pelvis without contrast. COMPARISON: May 04, 2025. FINDINGS: Lower chest: New subsegmental atelectasis. Borderline cardiomegaly. ABDOMEN: Liver: Normal attenuation. Gallbladder and biliary: Vicarious excretion of contrast into the gallbladder. Normal caliber bile ducts. Spleen: Normal size and attenuation. Pancreas: The noncontrast pancreas is homogeneous in attenuation without peripancreatic inflammatory changes or ductal dilatation. Adrenal glands: Normal adrenal glands. Kidneys and ureters: Normal attenuation. No radio-opaque calculi. No hydroureteronephrosis. GI tract: The stomach is relatively decompressed. Normal caliber small and large bowel loops. Normal appendix. Colonic diverticulosis. Improving but persistent ascending colonic wall thickening and adjacent stranding. Vascular structures: Normal caliber abdominal aorta. Lymph nodes: No lymphadenopathy in the abdomen or pelvis by size criteria. Peritoneum: Trace free fluid along the right pericolic gutter. No free air or focal drainable collection. PELVIS: Genitourinary system: Normal urinary bladder. SKELETAL STRUCTURES AND SOFT TISSUES: No suspicious lytic or blastic lesions. IMPRESSION: Improving but persistent ascending colon colitis. No focal drainable fluid collections. Please note that all CT scans at this facility use dose modulation, iterative reconstruction, and/or weight-based dosing when appropriate to reduce radiation dose to as low as reasonably achievable. Dictated by Hector Jordan MD @ 05/05/2025 12:35:05 PM (Electronically Signed)
[2025-05-05] MEDS: PANTOPRAZOLE SODIUM 40 MG INJ IVP (11:54)
[2025-05-05] MEDS: 0.9 % SODIUM CHLORIDE 500 ML 500 ML IV (11:54)
--- NOTE | 2025-05-05 13:46 | P.DS_ITS ---
Transfer Discharge Sum: Prov Provider Date Seen: 05/05/25 Date of admission: 05/04/25 11:41 Primary care physician: Not a Local Provider Admitting clinician: Megan Landrum Attending physician on discharge: Megan Landrum Anticipated date of transfer: 05/05/25 Receiving physician/facility: [facility] DS: Diagnosis Discharge Diagnosis (1) Hematochezia: Status: Acute Problem details: - 2/2 colitis, follow Hgb (2) Nausea & vomiting: Status: Acute Problem details: - treat, slowly advance diet (3) Diffuse abdominal pain: Status: Acute (4) Duodenal mass: Status: Acute Problem details: - incidentally noted 05/03/25, outpatient f/u (5) Colitis: Status: Acute Problem details: - on imaging 05/03 and 05/04 - ddx: infectious, inflammatory - not typically treated with abx, but given severe symptoms/discomfort/hematochezia, will cover with Zosyn - IVFs, clear diet if tolerated (currently not able to take anything po), slowly advance - check C-diff - will need outpatient colonoscopy in 4-6 weeks to evaluate Transfer Discharge Sum: Med Medications Active and Home Medications: Home Medications No Known Home Medications 05/03/25 [History Confirmed 05/04/25] Active Medications Acetaminophen (Acetaminophen 325 Mg Tablet) 975 mg PO Q6H PRN Last Admin: 05/05/25 08:06 Dose: 975 mg Enoxaparin Sodium (Enoxaparin 40 Mg/0.4 Ml Inj) 40 mg SUBCUT HS [facility] Hydromorphone HCl (Hydromorphone 0.5 Mg/0.5 Ml Inj) 0.2 - 0.5 mg IVP Q2H PRN PRN Reason: Pain Last Admin: 05/05/25 12:57 Dose: 0.5 mg Sodium Chloride (0.9 % Sodium Chloride 1000 Ml) 1,000 mls @ 125 mls/hr IV .Q8H PATTY Last Admin: 05/05/25 11:55 Dose: 125 mls/hr Piperacillin Sod/Tazobactam (Sod 3.375 gm/ Sodium Chloride) 100 mls @ 200 mls/hr IVPB Q6H PTATY Last Infusion: 05/05/25 11:52 Dose: Infused Ondansetron HCl (Ondansetron 2 Mg/Ml Inj) 4 mg IVP Q6H PRN PRN Reason: Nausea Last Admin: 05/05/25 02:00 Dose: 4 mg Pantoprazole Sodium (Pantoprazole Sodium 40 Mg Inj) 40 mg IVP Q24H PATTY Last Admin: 05/05/25 11:54 Dose: 40 mg Prochlorperazine (Prochlorperazine 5 Mg/Ml Vial) 5 mg IV Q6H PRN PRN Reason: Nausea Last Admin: 05/04/25 23:34 Dose: 5 mg Sodium Chloride (Sodium Chloride 0.9 % (Flush) 10 Ml Syringe) 5 ml IVF .FLUSH PRN Sodium Chloride (Sodium Chloride 0.9 % (Flush) 10 Ml Syringe) 5 ml IVF BID PATTY Last Admin: 05/05/25 08:08 Dose: 5 ml Transfer Discharge Sum: Hosp Hospital Course Hospital course: Wilberto Gipson is a 50 year old male who was admitted to the hospital on 07/05/2024 after 2 ER visits for hematochezia, intractable nausea and vomiting. Imaging consistent with colitis in ascending and transverse colon; incidentally noted an enhancing lesion in the duodenal bulb (less conspicuous on follow-up exam; had CTs taken 05/03, 05/04, 05/05). He has no previous medical history, no family history of IBD. No recent travel, no sick contacts, no offending foods. Does have some farm animals, all currently healthy. On admission, White count 11 with PMN predominance; Zosyn initiated. Given IV fluids, IV Dilaudid, IV Zofran. Minimal improvement on hospital day 1, although was able to tolerate small amounts of clears without vomiting. Has not any stool output since admission (unable to obtain stool studies as a result). Reviewed findings with minimal improvement by phone with GI at [facility], they accept patient in transfer for further GI evaluation. Dr Keyes was accepting hospitalist. Time Spent with Patient Time attestation: Total time spent providing and/or coordinating transfer services: Total time spent: Greater than 30 minutes Exam Narrative: Exam Narrative: GEN: Alert and laying in bed, intermittently diaphoretic from pain. Appears quite ill but nontoxic HEENT: EOMIs bilaterally, no scleral icterus CV: RRR, No concerning murmurs R: LCTA bilaterally without concerning wheezing Ab: Distended, diffusely tender to palpation, mild guarding Ext: wwp, no concerning edema Skin: No concerning skin lesions or rashes on exposed skin Neuro: Nonfocal Psych: Appropriate Const: Vital Signs, click to edit/add: Vital Signs - 24 hr 05/04/25 15:00 05/04/25 19:00 05/04/25 23:00 Temperature 97.9 F Pulse Rate [Right Pulse Oximeter] 55 L 56 L 51 L Respiratory Rate 18 18 16 Blood Pressure [Le ft Arm] 120/73 131/77 116/68 Pulse Oximetry 96 97 95 Oxygen Delivery Me thod Nasal Cannula Room Air Nasal Cannula Oxygen Flow Rate 2 1 05/04/25 23:00 05/05/25 03:00 05/05/25 07:00 Temperature 98.0 F 97.7 F Pulse Rate [Right Pulse Oximeter] 56 L 65 Respiratory Rate 16 22 Blood Pressure [Le ft Arm] 113/66 130/77 Pulse Oximetry 95 98 97 Oxygen Delivery Me thod Nasal Cannula Nasal Cannula Room Air Oxygen Flow Rate 1 1 05/05/25 07:00 05/05/25 11:00 Temperature 98.1 F Pulse Rate [Right Pulse Oximeter] 54 L Respiratory Rate 18 Blood Pressure [Le ft Arm] 102/60 Pulse Oximetry 97 95 Oxygen Delivery Me thod Room Air Room Air Oxygen Flow Rate Transfer Discharge Sum: A/P Plan Cognitive capacity at transfer: To [facility] for GI evaluation Discharge Plan Discharge Disposition: [facility] Date of Admission: 05/04/25 11:41 Attending Provider on Discharge: Megan Landrum Primary Care Provider: Provider,Not a Local Discharge Orders: Transfer of Care to Other Hospital (ORDER); Ordered 05/05/25 Ordered By: Megan Landrum Oxygen: No Urinary Catheter: No Services not available here: GI
[2025-05-05 14:01] LABS: Hemoglobin* 12.7 gm/dL (13.5-17.5)
[2025-05-05 14:33] VITALS: O2SAT 95
[2025-05-05 15:00] VITALS: BP 127/77; PULSE 54; RESP 18; TEMP 36.7; O2SAT 95
== END 2025-05-05 16:35 | disposition short-term general hospital (02) | DRG 392 ==
LOC: ED 07:04 → MEDSURG 10:01
PROVIDERS: Admitting Provider Family Medicine; Emergency Provider Emergency Medicine; Visit Provider Family Medicine
DX: K52.9 Noninfective gastroenteritis and colitis, unspecified (principal); K92.1 Melena; K31.89 Other diseases of stomach and duodenum
CPT/HCPCS: 36415; 74176; 74177; 80048; 80053; 80076; 83605; 83690; 85018; 85025; 85651; 86140; 87493; 99285; A9270; J0780; J1171; J2270; J2405; J2470; J2543; J7030; Q9967

== ENCOUNTER 2025-05-05 16:30 | Outpatient (CLI) | payer OTHER, SELFPAY | END 2025-05-05 16:31 | disposition home or self-care (01) | PROVIDERS: Visit Provider Student in an Organized Health Care Education/Training Program | DX: K92.1 Melena (principal); R11.2 Nausea with vomiting, unspecified; K31.89 Other diseases of stomach and duodenum; K52.9 Noninfective gastroenteritis and colitis, unspecified | CPT/HCPCS: A0425; A0429 ==